=== PATIENT | female | born 1975 | race Caucasian/White ===

== ENCOUNTER 2019-02-23 19:30 | Inpatient (IN) | payer MEDICAID ==
[2019-02-23] MEDS ORDERED: LR 1,000 ML IV PRN (20:05)
[2019-02-23] MEDS ORDERED: AMMONIA AROMATIC 1 EACH AMP IH PRN (20:05)
[2019-02-23] MEDS ORDERED: IBUPROFEN 600 MG TAB PO PRN (20:05)
[2019-02-23] MEDS ORDERED: OXYTOCIN/RINGERS LACTATE 1,000 ML IV PRN (20:05)
[2019-02-23] MEDS ORDERED: OLIVE OIL 118 ML BTL MISC PRN (20:05)
[2019-02-23] MEDS ORDERED: MISOPROSTOL 200 MCG TAB PO PRN (20:05)
[2019-02-23] MEDS ORDERED: TERBUTALINE SULFATE 1 MG/ML VIAL IV PRN (20:05)
[2019-02-23] MEDS ORDERED: EPSOM SALT 454 GM TP PRN (20:05)
[2019-02-23] MEDS ORDERED: LIDOCAINE 1% 300 MG/30 ML SDV SC PRN (20:05)
--- NOTE | 2019-02-23 20:08 | PDGENHP ---
History and Physical History and Physical: CARE: Care starting at 24 weeks with Mickitroy Botello. HPI: Patient is a 43 yo G 3 P 1 @ 39 weeks who presents to L&D for pain relief in labor. She SROM'd at 6:30 AM and started denise a couple hours later. She reports strong uternine contractions throughout the day. She was attempting a home , but transferred for pain relief. Her home ceramic chemist, Mickitroy Botello reports reassuring heart tones by intermittent monitoring throughout the day. EDC: 02/25/19 which is based on LMP of 05/21/18 and consistent with Ultrasound at 34 weeks. Her is complicated by: AMA, prior c/s, late care. Review of Systems: Constitutional: Denies any fever, chills, or fatigue HEENT: denies any visual changes, difficulty swallowing, hearing loss Cardiovascular: Denies any chest pain, palpitations, leg swelling Respiratory: denies any cough, wheezing, or shortness of breath GI: Denies any nausea, vomiting, diarrhea, constipation : denies any dysuria, urgency, frequency, vaginal bleeding Musculoskeletal: denies any muscle or bone pain Skin: denies any rashes Neuro: denies any headache, seizures, lightheadedness, dizziness, or loss of consciousness Psychiatric: denies any depression, anxiety, or SI/HI thoughts HISTORY: Previous OB history: one prior EAB, prior in 2016 ended in still and c/s Social history: lives with FOB who is currently incarcerated Family history: non-contributory Past medical history: denies relevant medical history Past surgical history: prior c/s in 2016, wisdom teeth Medications: PNV Allergies (list reaction): NKDA LABS: Rh: O+ ABS: Neg Rubella: Immune HbsAg: NR HIV: pt declined, was negative in 2016 VDRL: NR 1hr: pt declined, had hemoglobin A1C= 4.9 GC: Neg Chlamydia: Neg Pap: Normal 2016 GBS: neg BMI: (prepreg) 20 PHYSICAL EXAM: Constitutional: WN, A&Ox3 HEENT: normocephalic atraumatic, supple Heart: RRR, no murmur Chest: CTA-B Skin: warm, dry, intact Abdomen: Soft, nontender, gravid SVE: 690/-1 Extremities: trace edema, negative homans sign Neuro: grossly normal Psych: normal affect assessment: FHT baseline 135, +accels, variable decels, moderate variability Contractions: toco q 2-4 min Assessment: 1) 43 yo G 3 P 1 with IUP@ 39 weeks and 3 days 2) GBS neg 3) Cat 2 FHR tracing, recurrent variables with contractions Plan: 1) Admit to L&D 2) Anticipate
--- NOTE | 2019-02-23 21:05 | PREANESOB ---
Obstetric Pre-Anesthesia Info - General Info Proposed Procedure: , possible emergency repeat C/S : 3 Para: 1 DAXA: 02/25/19 Gestational Age: 39 week(s) and 5 day(s) - Info Status: Full Term, Snell Monitors: External FHR Pattern: Reassuring - Labor Status PIH: No Magnesium Sulfate in Use: No Section History: Repeat (Possible, in the event of uterine rupture or dehiscence.) Labor Epidural: No Anesthesia Allergies/Adverse Reactions: Allergy/AdvReac Type Severity Reaction Status Date / Time No Known Allergies Allergy Unverified 07/02/12 19:11 Visit Medications: Generic Name Dose Route Start Last Admin Trade Name Freq PRN Reason Stop Dose Admin Ammonia (Aromatic Spirit) 1 each 02/23/19 20:05 Ammonia Aromatic IH 03/05/19 20:04 ONCE PRN Fainting Lactated Ringer's 1,000 mls @ 0 mls/hr 02/23/19 20:05 02/23/19 20:58 Lr IV 02/24/19 20:04 1,000 mls PRN PRN Administration SEE PROTOCOL CONDITIONS Protocol Per Protocol Oxytocin/Lactated Ringer's 1,000 mls @ 0 mls/hr 02/23/19 20:05 Pitocin 20 Units/Lr (Premix) IV PRN PRN Post bleeding As Directed Ibuprofen 600 mg 02/23/19 20:05 Motrin PO ONCE PRN post , pain Lidocaine HCl 300 mg 02/23/19 20:05 Lidocaine Hcl 1% SC 08/22/19 20:04 ONCE PRN episiotomy Magnesium Sulfate 454 gm 02/23/19 20:05 Epsom Salt TP 08/22/19 20:04 Q1H PRN perineal discomfort Misoprostol 800 - 1,000 mcg 02/23/19 20:05 Cytotec PO 08/22/19 20:04 ONCE PRN Vaginal Atony/Bleeding [place] Oil 118 ml 02/23/19 20:05 Sweet Oil MISC 08/22/19 20:04 ONCE PRN perineal massage Terbutaline Sulfate 0.25 mg 02/23/19 20:05 Brethine IV 08/22/19 20:04 ONCE PRN Tachysystole - Anesthesia History Response to Local Anesthetics: Normal Anesthesia & Operative History: Other (Specify) (Emergeny C/S under GA in 2016 for non-reassuring status. She reports slow emergence from anesthesia.) - Social History Substance Use/Abuse: Other (Specify) (Some marijuana use during .) - Vital Signs Height/Weight (Nursing): Height 152.4 cm Weight 62.142 kg - Focused Exam Neck exam: FROM Mallampati Score: Class 2 Mouth exam: normal dental/mouth exam Pulmonary: no respiratory distress, no rales or rhonchi, clear to auscultation Cardiovascular: regular rate and rhythym, no murmur, rub, or gallop - Plan Consent Signed and on Chart: No Patient/Guardian Understands and Agrees to Plan: Yes General Comments: GA or SAB as req for C/S. Anesthesiologist standing by until delivery.
[2019-02-23] MEDS ORDERED: TERBUTALINE SULFATE 1 MG/ML VIAL ONE (21:22)
[2019-02-23] MEDS ORDERED: OLIVE OIL 118 ML BTL MISC ONE (21:22)
[2019-02-23] MEDS ORDERED: AMMONIA AROMATIC 1 EACH AMP IH ONE (21:22)
[2019-02-23] MEDS ORDERED: LIDOCAINE 1% 300 MG/30 ML SDV ONE (21:22)
[2019-02-23] MEDS ORDERED: OXYTOCIN 10 UNIT/ML VIAL ONE (21:23)
[2019-02-23] MEDS ORDERED: MISOPROSTOL 200 MCG TAB ONE (21:23)
[2019-02-23 21:28] LABS: PLATELET COUNT 216 10^3/uL (150-400)
--- NOTE | 2019-02-23 22:51 | OBPROG ---
Labor Progress Note Assessment/Plan: Assessment: Plan: Subjective/Intrapartum Course: 02/23/19 22:49 pt is breathing and moaning through contractions. using nitrous intermittently for pain relief. FOB and kiln mechanic and friend at bedside for support. Objective: 02/23/19 20:50 Patient ABO/Rh O POSITIVE 02/23/19 20:50 - SVE Dilation (cm): 6 Effacement (%): 90 Station: -1 Membranes: SROM Amniotic Fluid Color: Clear - Contraction Pattern Assessment Current Contraction Pattern: Regular - FHR Assessment Snell FHR (bpm): 125 FHR Pattern Variability: Moderate FHR Category: 2 (recurrent variable decelerations) - AP Antepartum Course: 02/23/19 22:52 encouraged pt to allow another vaginal exam and place internal monitor to better trace baby heart rate and provide amnio infusion via IUPC. R/B reviewed with pt. Pt declines this procedure at this time. Oxytocin Orders Assessment - Pre-Induction/Augmentation Assessment Gestational Age: 39 week(s) and 5 day(s) ICD10 Worksheet Patient Problems: Problems Problem Status Onset History of section, low transverse Acute with 39 completed weeks gestation Acute
--- NOTE | 2019-02-23 23:23 | OBPROG ---
Labor Progress Note Assessment/Plan: Assessment: 1. TOLAC 2. Term IUP 3. SROM 4. Cat 2 FHT Plan: 1. Continue monitoring 2. Dr. Tapia aware and in house 02/23/19 23:20 Subjective/Intrapartum Course: 02/23/19 22:49 pt is breathing and moaning through contractions. using nitrous intermittently for pain relief. FOB and organisation and methods analyst and friend at bedside for support. Objective: 02/23/19 20:50 Patient ABO/Rh O POSITIVE 02/23/19 20:50 - SVE Dilation (cm): 7 Effacement (%): 90 Station: -1 Membranes: SROM Amniotic Fluid Color: Clear - Contraction Pattern Assessment Current Contraction Pattern: Regular - FHR Assessment Snell FHR (bpm): 125 FHR Pattern Variability: Moderate FHR Category: 2 - AP Antepartum Course: 02/23/19 22:52 encouraged pt to allow another vaginal exam and place internal monitor to better trace baby heart rate and provide amnio infusion via IUPC. R/B reviewed with pt. Pt declines this procedure at this time. 02/23/19 23:22 Pt again declines FSE and IUPC, epidural anesthesia offered and pt declines at this time. Encourage position change to help with rotation. Oxytocin Orders Assessment - Pre-Induction/Augmentation Assessment Gestational Age: 39 week(s) and 5 day(s) ICD10 Worksheet Patient Problems: Problems Problem Status Onset History of section, low transverse Acute with 39 completed weeks gestation Acute
[2019-02-24] MEDS ORDERED: NALOXONE HCL 0.4 MG/ML INJ IVP PRN ×3 (00:35→08:59)
[2019-02-24] MEDS ORDERED: ONDANSETRON 4 MG/2 ML VIAL IVP PRN ×2 (00:35→08:58)
[2019-02-24] MEDS ORDERED: PHENYLEPHRINE HCL 100 MCG/ML SYR IVP PRN (00:35)
--- NOTE | 2019-02-24 00:35 | PREANESOB ---
Obstetric Pre-Anesthesia Info - General Info Proposed Procedure: JOSE RAMON : 3 Para: 1 DAXA: 02/25/19 Gestational Age: 39 week(s) and 5 day(s) - Info Status: Full Term FHR Pattern: Reassuring - Labor Status Cervical Dilation per last OB SVE: 7 Station per last OB SVE: -1 Amniotic Fluid Color: Clear Indications for Labor Analgesia: Pain Control Labor Epidural: Yes Anesthesia Allergies/Adverse Reactions: Allergy/AdvReac Type Severity Reaction Status Date / Time No Known Allergies Allergy Unverified 07/02/12 19:11 Visit Medications: Generic Name Dose Route Start Last Admin Trade Name Freq PRN Reason Stop Dose Admin Ammonia (Aromatic Spirit) 1 each 02/23/19 20:05 Ammonia Aromatic IH 03/05/19 20:04 ONCE PRN Fainting Lactated Ringer's 1,000 mls @ 0 mls/hr 02/23/19 20:05 02/23/19 20:58 Lr IV 02/24/19 20:04 1,000 mls PRN PRN Administration SEE PROTOCOL CONDITIONS Protocol Per Protocol Oxytocin/Lactated Ringer's 1,000 mls @ 0 mls/hr 02/23/19 20:05 Pitocin 20 Units/Lr (Premix) IV PRN PRN Post bleeding As Directed Ibuprofen 600 mg 02/23/19 20:05 Motrin PO ONCE PRN post , pain Lidocaine HCl 300 mg 02/23/19 20:05 Lidocaine Hcl 1% SC 08/22/19 20:04 ONCE PRN episiotomy Magnesium Sulfate 454 gm 02/23/19 20:05 Epsom Salt TP 08/22/19 20:04 Q1H PRN perineal discomfort Misoprostol 800 - 1,000 mcg 02/23/19 20:05 Cytotec PO 08/22/19 20:04 ONCE PRN Vaginal Atony/Bleeding [place] Oil 118 ml 02/23/19 20:05 Sweet Oil MISC 08/22/19 20:04 ONCE PRN perineal massage Terbutaline Sulfate 0.25 mg 02/23/19 20:05 Brethine IV 08/22/19 20:04 ONCE PRN Tachysystole Discontinued Medications Generic Name Dose Route Start Last Admin Trade Name Freq PRN Reason Stop Dose Admin Ammonia (Aromatic Spirit) Confirm 02/23/19 21:22 Ammonia Aromatic Administered 02/23/19 21:23 Dose 1 each IH .STK-MED ONE Lidocaine HCl Confirm 02/23/19 21:22 Lidocaine Hcl 1% Administered 02/23/19 21:23 Dose 300 mg .ROUTE .STK-MED ONE Misoprostol Confirm 02/23/19 21:23 Cytotec Administered 02/23/19 21:24 Dose 1,000 mcg .ROUTE .STK-MED ONE [place] Oil Confirm 02/23/19 21:22 Sweet Oil Administered 02/23/19 21:23 Dose 118 ml MISC .STK-MED ONE Oxytocin Confirm 02/23/19 21:23 Pitocin Administered 02/23/19 21:24 Dose 40 unit .ROUTE .STK-MED ONE Terbutaline Sulfate Confirm 02/23/19 21:22 Brethine Administered 02/23/19 21:23 Dose 1 mg .ROUTE .STK-MED ONE - Anesthesia History Anesthesia & Operative History: No Prior Problems - Vital Signs Height/Weight (Nursing): Height 152.4 cm Weight 62.142 kg - Focused Exam Neck exam: FROM Mallampati Score: Class 2 Mouth exam: normal dental/mouth exam Pulmonary: no respiratory distress, no rales or rhonchi Cardiovascular: regular rate and rhythym, no murmur, rub, or gallop Labs: 02/23/19 20:50 Patient ABO/Rh O POSITIVE 02/23/19 20:50 - Plan Consent Signed and on Chart: Yes Patient/Guardian Understands and Agrees to Plan: Yes Urgent/Emergent Case: Donnie novoa completed preop but documented later for safe timely pt care (ASA II)
[2019-02-24] MEDS ORDERED: fentaNYL 100 MCG/2 ML INJ ONE (00:38)
[2019-02-24] MEDS ORDERED: fentaNYL 2MCG/ML/BUP 0.1% RTU 100 ML BAG EP ONE (00:39)
[2019-02-24] MEDS ORDERED: PHENYLEPHRINE HCL 100 MCG/ML SYR ONE (00:39)
[2019-02-24] MEDS ORDERED: BUPIVACAINE 0.25% 10 ML SDV ONE (00:40)
[2019-02-24] MEDS ORDERED: LR 500 ML IV SCH (01:00)
[2019-02-24] MEDS ORDERED: fentaNYL 2MCG/ML/BUP 0.1% RTU 100 ML EP SCH (01:00)
--- NOTE | 2019-02-24 02:29 | OBPROG ---
Labor Progress Note Assessment/Plan: Assessment: 1. TOLAC 2. Term IUP 3. SROM 4. Cat 2 FHT Plan: 1. Continue monitoring 2. Dr. Tapia aware and in house 02/23/19 23:20 Subjective/Intrapartum Course: 02/23/19 22:49 pt is breathing and moaning through contractions. using nitrous intermittently for pain relief. FOB and button station worker and friend at bedside for support. Objective: 02/23/19 20:50 Patient ABO/Rh O POSITIVE 02/23/19 20:50 - SVE Membranes: SROM Amniotic Fluid Color: Clear - Contraction Pattern Assessment Current Contraction Pattern: Regular - AP Antepartum Course: 02/23/19 22:52 encouraged pt to allow another vaginal exam and place internal monitor to better trace baby heart rate and provide amnio infusion via IUPC. R/B reviewed with pt. Pt declines this procedure at this time. 02/23/19 23:22 Pt again declines FSE and IUPC, epidural anesthesia offered and pt declines at this time. Encourage position change to help with rotation. 02/24/19 02:27 called to room for decel of approximately 6 min. FHR recovered and good variability at this time. Oxytocin Orders Assessment - Pre-Induction/Augmentation Assessment Gestational Age: 39 week(s) and 5 day(s) ICD10 Worksheet Patient Problems: Problems Problem Status Onset History of section, low transverse Acute with 39 completed weeks gestation Acute
[2019-02-24] MEDS ORDERED: LR 500 ML IV PRN (05:31)
--- NOTE | 2019-02-24 05:40 | OBPROG ---
Labor Progress Note Assessment/Plan: Assessment: 1. TOLAC 2. Term IUP 3. SROM 4. Cat 2 FHT Plan: 1. Continue monitoring 2. Dr. Tapia aware and in house 02/23/19 23:20 Subjective/Intrapartum Course: 02/23/19 22:49 pt is breathing and moaning through contractions. using nitrous intermittently for pain relief. FOB and mixed crop and livestock farm worker and friend at bedside for support. 02/24/19 05:33 pt is comfortable with epidural. Objective: 02/23/19 20:50 Patient ABO/Rh O POSITIVE 02/23/19 20:50 VSS, cat 2 FHT - SVE Dilation (cm): 7 (7-8 swollen) Effacement (%): 80 Station: -1 Membranes: SROM Amniotic Fluid Color: Meconium Stained - Contraction Pattern Assessment Current Contraction Pattern: Irregular (5-8 minutes) - FHR Assessment Snell FHR (bpm): 135 FHR Pattern Variability: Moderate FHR Category: 2 (pt continues having variable decelerations with nearly every contraction) - AP Antepartum Course: 02/23/19 22:52 encouraged pt to allow another vaginal exam and place internal monitor to better trace baby heart rate and provide amnio infusion via IUPC. R/B reviewed with pt. Pt declines this procedure at this time. 02/23/19 23:22 Pt again declines FSE and IUPC, epidural anesthesia offered and pt declines at this time. Encourage position change to help with rotation. 02/24/19 02:27 called to room for decel of approximately 6 min. FHR recovered and good variability returned at this time. 02/24/19 05:34 R/B of pitocin augmentation vs continued expectant management discussed with pt. R/B of IUPC and amnio-infusion discussed with pt again. R/B of repeat c/s reviewed with pt. Discussed non-emergent vs emergent c/s and differences between now and her last operative . Pt is discussing with partner, friends at this time. 02/24/19 06:09 Pt is considering as best option for at this time, declines IUPC and pitocin augmentation. Oxytocin Orders Assessment - Pre-Induction/Augmentation Assessment Gestational Age: 39 week(s) and 5 day(s) ICD10 Worksheet Patient Problems: Problems Problem Status Onset History of section, low transverse Acute with 39 completed weeks gestation Acute Prolonged labor with second Acute - ICD10 Problem Qualifiers (1) Prolonged labor with second
[2019-02-24] MEDS ORDERED: OXYTOCIN/RINGERS LACTATE 500 ML IV SCH (06:00)
--- NOTE | 2019-02-24 07:01 | OBPROG ---
Labor Progress Note Assessment/Plan: Assessment: 43 yo today at 39w6d - presented Monday afternoon as transfer from home with her optical effects layout person -- TOLAC at home. See Terri's notes for full presentation details - but briefly, SROM early Monday morning, transferring for pain control. She has a h/o prior D&C for missed AB in the past, and with her last term she actually was laboring at center and ended up transferring to [facility] due to distress. Unclear story - but it seems that heart tones were down or non- existent when she arrived at [facility] and they elected to do an emergent section and tried to resuscitate the baby, but unsuccessful. With this she's had scant care. DAXA by LMP, no early dating US's. Did have normal anatomy scan at 34 weeks which was consistent w dating, posterior placenta. She had normal labs except for HIV. She declined her Glucola/GDM screening. -- I had a long talk with her and her partner/hose mender. I recommended RCS due to arrest of dilation in the context of TOLAC. I counseled her that it is ultimately undesirable to be denise and not making any progress in her situation as that will place additional stress on her hysterotomy scar. She is comfortable with that plan. Consents signed, RBA discussed. - Routine preop orders. - Weight-based abx, Ancef and Azithro. JM Subjective/Intrapartum Course: Terri asked me to consult with Diann this AM re possible RCS. Reviewed her labor progress thus far - unfortunately now at 7-8cm most recently with swollen anterior lip of cervix. She is declining IUPC and Pitocin at this point. Comfortable with epidural. Objective: 02/23/19 20:50 Patient ABO/Rh O POSITIVE 02/23/19 20:50 - SVE Dilation (cm): 7 Membranes: SROM Amniotic Fluid Color: Meconium Stained - Contraction Pattern Assessment Current Contraction Pattern: Regular (q7-10mins), Irregular (5-8 minutes) - AP Antepartum Course: 02/23/19 22:52 encouraged pt to allow another vaginal exam and place internal monitor to better trace baby heart rate and provide amnio infusion via IUPC. R/B reviewed with pt. Pt declines this procedure at this time. 02/23/19 23:22 Pt again declines FSE and IUPC, epidural anesthesia offered and pt declines at this time. Encourage position change to help with rotation. 02/24/19 02:27 called to room for decel of approximately 6 min. FHR recovered and good variability returned at this time. 02/24/19 05:34 R/B of pitocin augmentation vs continued expectant management discussed with pt. R/B of IUPC and amnio-infusion discussed with pt again. R/B of repeat c/s reviewed with pt. Discussed non-emergent vs emergent c/s and differences between now and her last operative . Pt is discussing with partner, friends at this time. 02/24/19 06:09 Pt is considering as best option for at this time, declines IUPC and pitocin augmentation. Oxytocin Orders Assessment - Pre-Induction/Augmentation Assessment Gestational Age: 39 week(s) and 5 day(s) ICD10 Worksheet Patient Problems: Problems Problem Status Onset History of section, low transverse Acute with 39 completed weeks gestation Acute Prolonged labor with second Acute
[2019-02-24] MEDS ORDERED: AZITHROMYCIN IV 500 MG in NS 250 ML IV ONE (07:03)
[2019-02-24] MEDS ORDERED: LR 500 ML IV ONE (07:03)
[2019-02-24] MEDS ORDERED: ceFAZolin 2 GM/DEXTROSE 100 ML IV ONE (07:03)
[2019-02-24] MEDS ORDERED: LR 1,000 ML IV SCH (07:30)
--- NOTE | 2019-02-24 08:01 | PDANEPAE ---
ANE History of Present Illness 43 year old with term for C/S ANE Past Medical History - Pulmonary History Hx Sleep Apnea: No Sleep Apnea Screening Result - Last Documented: Negative - Endocrine History Hx Diabetes: No ANE Review of Systems Review of systems is: negative Review of Systems: ANE Patient History - Allergies Allergies/Adverse Reactions: No Known Allergies Allergy (Unverified 07/02/12 19:11) - NPO status NPO Since - Liquids (Date): 02/24/19 NPO Since - Liquids (Time): 00:00 NPO Since - Solids (Date): 02/23/19 NPO Since - Solids (Time): 12:00 - Anes Hx Anes Hx: no prior problems - Smoking Hx Smoking Status: Former smoker ANE Labs/Vital Signs - Labs Result Diagrams: 02/23/19 20:50 - Vital Signs Blood Pressure: 113/66 Heart Rate: 90 Respiratory Rate: 16 O2 Sat (%): 100 Height: 152.4 cm Weight: 62.142 kg ANE Physical Exam - Airway Neck exam: FROM Mallampati Score: Class 1 Mouth exam: normal dental/mouth exam - Pulmonary Pulmonary: no respiratory distress, clear to auscultation - Cardiovascular Cardiovascular: regular rate and rhythym - ASA Status ASA Status: II ANE Anesthesia Plan Anesthesia Plan: epidural
[2019-02-24] MEDS ORDERED: morphINE PF 10 MG/10 ML INJ ONE (08:56)
[2019-02-24] MEDS ORDERED: fentaNYL 100 MCG/2 ML INJ IVP PRN (08:58)
[2019-02-24] MEDS ORDERED: MEPERIDINE 25 MG/0.5 ML AMP IVP PRN (08:58)
--- NOTE | 2019-02-24 09:29 | SUROPNOTE ---
ANGE Operative Report - Surgery Date of Operation: 02/24/19 Surgeon: [facility] Customer Service: Terri Carter CNM Anesthesiologist: Pavan Henning Pre-op Diagnosis: Arrest of dilation, failed TOLAC Post-op Diagnosis: Same Procedure: RLTCS Findings: Normal uterus tubes and ovaries, minimal scar tissue. Vigorous baby boy Inf/Abcess present in the surg proc area at time of surgery?: No EBL: 500-1000 (700cc) Complications: None Specimen(s): Cord blood gasses sent Technique: The patient was taken to the OR where epidural was dosed and anesthesia found to be adequate. The patient was then positioned supine with a leftward tilt and a time-out was performed. She was given weight-based antibiotics prior to skin incision - Azithromycin as well as Ancef. The abdomen was prepped and draped in normal sterile fashion. A Pfannenstiel skin incision was made with the scalpel and carried down to the fascia. Her prior transverse scar was excised prior to that dissection. The fascia was incised in the midline and the incision extended bilaterally sharply with scissors. The fascia was dissected off of the underlying rectus muscles superiorly and inferiorly also sharply using scissors. The rectus were in the midline and the peritoneum identified and entered bluntly without issue. Minimal adhesions encountered as described in findings. The peritoneal incision was extended and the bladder blade was then placed. The vesicouterine junction was identified and a bladder flap created sharply and developed bluntly. Bakari O retractor placed. There was NO evidence of uterine rupture at all. A transverse incision was made with the scalpel in the lower uterine segment and extended with cephalad and caudad traction on the incision edges. The head was encountered and easily elevated out of the pelvis and delivered atraumatically, followed by the shoulders and body. The nose and mouth were bulb suctioned. We did wait for 60 seconds before clamping and cutting the cord and then the was handed to pediatric staff. Cord blood gases were sent but the placenta was not sent to pathology. The uterus was then carefully wiped of all debris. The uterus was closed in two layers - the first layer was running with 180 0-vloc and the second a vertical imbricating layer using 0-vicryl. The gutters were cleared of all clots. The uterine incision was re-inspected and found to be hemostatic after placement of two additional figure of eight sutures of 2-0 vicryl. The fascia was elevated and the rectus muscles and subcutaneous tissues were found to be hemostatic. The fascia was closed with a running 0-Vicryl - single suture. The subcutaneous tissues were irrigated and hemostasis obtained. The skin was closed with 4-0 vloc undyed and then covered with Medipore dressing. The patient tolerated the procedure and was taken to recovery in stable condition. Lap, needle, sponge, and instrument count were announced as correct times two. I was present and scrubbed for the entire case.
--- NOTE | 2019-02-24 09:31 | OBDEL ---
Info Type: Repeat Presentation at Delivery: Vertex L&D Analgesia/Anesthesia Type: Epidural GBS+: No Intrapartum Medications: Generic Name Dose Route Start Last Admin Trade Name Freq PRN Reason Stop Dose Admin Lactated Ringer's 1,000 mls @ 0 mls/hr 02/23/19 20:05 02/23/19 20:58 Lr IV 02/24/19 20:04 1,000 mls PRN PRN Administration SEE PROTOCOL CONDITIONS Protocol Per Protocol Discontinued Medications Generic Name Dose Route Start Last Admin Trade Name Freq PRN Reason Stop Dose Admin Azithromycin 500 mg/ Sodium 255 mls @ 255 mls/hr 02/24/19 07:03 02/24/19 07: 22 Chloride IV 02/24/19 08:02 255 mls ONCE ONE Administration Protocol Cefazolin Sodium/Dextrose 100 mls @ 200 mls/hr 02/24/19 07:03 02/24/19 07:22 Ancef IV 02/24/19 07:32 100 mls ONCALL ONE Administration Protocol - Hospital Course Intrapartum: Terri asked me to consult with Diann this AM re possible RCS. Reviewed her labor progress thus far - unfortunately now at 7-8cm most recently with swollen anterior lip of cervix. She is declining IUPC and Pitocin at this point. Comfortable with epidural. Indications for Delivery: SROM (H/o prior , failed TOLAC) Vaginal Delivery - Labor and Delivery Onset of Contractions Date: 02/23/19 Onset of Contractions Time: 08:00 Amniotic Fluid Color: Meconium Stained Cord Gases: Cord Gases Cord Blood PCO2 REJ 02/24/19 08:37 Cord Base Excess REJ 02/24/19 08:37 Cord ABG pH REJ 02/24/19 08:37 Cord VBG pH REJ 02/24/19 08:37 Operative Report - Delivery Pre-op Diagnoses: Failed TOLAC, SROM, h/o prior , meconium-stained fluid , arrest of dilation, limited care Post-op Diagnoses: Same History of Prior Section: Yes Number of Prior Sections: 1 Nulliparous Prior to Delivery: No Indications for Prior Section: Non-reas. Status Indications for Current Section: Arrest of Dilation (8cm, declines IUPC and Pitocin) Procedure: Unscheduled Surgeon: Norberto Tapia Safety Net Maker: Terri Carter Anesthesiologist: Cruz Baron Warm Complications: None Findings: Normal uterus, tubes and ovaries. Vigorous baby boy, grossly normal placenta and cord. No evidence of uterine rupture. EBL: 700 Cord Gases: Cord Gases Cord Blood PCO2 REJ 02/24/19 08:37 Cord Base Excess REJ 02/24/19 08:37 Cord ABG pH REJ 02/24/19 08:37 Cord VBG pH REJ 02/24/19 08:37 [place] Data DAXA: 02/25/19 Gestational Age: 39 week(s) and 6 day(s) [facility] Delivery Date: 02/24/19 Sex of : Male ICD10 Worksheet Patient Problems: Problems Problem Status Onset Arrest of dilation, delivered, current hospitalization Acute Failed trial of labor following previous , delivered Acute History of section, low transverse Acute Limited care Acute with 39 completed weeks gestation Acute Prolonged labor with second Acute - ICD10 Problem Qualifiers (1) Failed trial of labor following previous , delivered (2) Arrest of dilation, delivered, current hospitalization (3) Limited care Qualifiers: Trimester: third trimester Qualified Code(s): O09.33 - Supervision of with insufficient care, third trimester
[2019-02-24] MEDS ORDERED: MAGNESIUM HYDROXIDE 30 ML UDCUP PO PRN (09:35)
[2019-02-24] MEDS ORDERED: POLYETHYLENE GLYCOL 3350 17 GM PKT PO PRN (09:35)
[2019-02-24] MEDS ORDERED: oxyCODONE IR 5 MG TAB PO PRN (09:35)
[2019-02-24] MEDS ORDERED: SIMETHICONE 80 MG TAB CHEW PO PRN (09:35)
[2019-02-24] MEDS ORDERED: PROMETHAZINE HCL 25 MG/ML INJ IVP PRN (09:35)
[2019-02-24] MEDS ORDERED: BISACODYL 10 MG SUPP PR PRN (09:35)
[2019-02-24] MEDS ORDERED: LACTULOSE 20 GM/30 ML UDCUP PO PRN (09:35)
--- NOTE | 2019-02-24 09:49 | POSTANESTH ---
Post Anesthetic Evaluation Cardiovascular Status: Normal, Stable Respiratory Status: Normal, Stable Level of Consciousness/Mental Status: Can Participate in Eval Pain Control: Adequate, Prn Tx Ordered Nausea/Vomiting Control: Adequate, Prn Tx Ordered Complications Possibly Related to Anesthesia: None Noted
[2019-02-24] MEDS: IBUPROFEN 600 MG TAB PO SCH ×2 (10:32→22:04)
[2019-02-24] MEDS: ACETAMINOPHEN 325 MG TAB PO SCH ×2 (10:38→16:47)
[2019-02-24] MEDS: KETOROLAC 30 MG/1 ML SDV IVP SCH ×3 (10:44→22:04)
[2019-02-24] MEDS: SENNOSIDES/DOCUSATE SODIUM TAB PO SCH (22:04)
[2019-02-25] MEDS: IBUPROFEN 600 MG TAB PO SCH ×4 (05:43→22:03)
[2019-02-25] MEDS: ACETAMINOPHEN 325 MG TAB PO SCH ×4 (05:43→22:03)
[2019-02-25] MEDS: KETOROLAC 30 MG/1 ML SDV IVP SCH (05:44)
--- NOTE | 2019-02-25 10:45 | OBPP ---
Progress Note Assessment/Plan: Assessment: s/p RCS, failed TOLAC-SROM with meconium stained fluid, arrest of descent, limited care POD #1 Plan: Pt is very upset and wants to be left alone; she is feeling overwhelmed with "random people coming in every 20 minutes" and needs time to herself I told pt that I would have my partner, Dr. Tapia, come by and round on her later this afternoon and she agreed 02/25/19 10:49 Objective: 02/23/19 20:50 Patient ABO/Rh O POSITIVE 02/23/19 20:50 Temp Pulse Resp BP Pulse Ox 36.3 C 95 16 120/86 H 95 02/25/19 10:00 02/25/19 10:00 02/25/19 10:00 02/25/19 10:00 02/25/19 10:00
--- NOTE | 2019-02-25 14:09 | OBPP ---
Progress Note Assessment/Plan: Assessment: 1. TOLAC 2. Term IUP 3. SROM 4. Cat 2 FHT Plan: 1. Continue monitoring 2. Dr. Tapia aware and in house 02/23/19 23:20 Subjective/ Course: 02/25/19 09:45 Pt reports that her pain is well controlled and she denies need for pain medication at this time. Pt reports pain "like pulled muscle" in R shoulder. She reports that she is breast feeding well. Denies problems voiding or passing flatus. Objective: 02/23/19 20:50 Patient ABO/Rh O POSITIVE 02/23/19 20:50 Temp Pulse Resp BP Pulse Ox 36.3 C 95 16 120/86 H 95 02/25/19 10:00 02/25/19 10:00 02/25/19 10:00 02/25/19 10:00 02/25/19 10:00 VSS Uterine Position/Fundal Height: At Umbilicus Uterine Tone: Firm Physical Exam - Physical Exam Abdomen: dressing (clean and dry) Extremities: No calf tenderness, No Noemí's sign
[2019-02-25] MEDS: SENNOSIDES/DOCUSATE SODIUM TAB PO SCH ×2 (15:17→22:03)
--- NOTE | 2019-02-25 15:49 | ASMTCMCOM ---
CM Note CM Note Notes: Pt's RN contact CM as FOC was at the but then had to return to retirement, and RN was concerned that pt may need extra support. When CM attempted to see pt, she declined, explaining to RN that she has a home and income, insurance and plenty of support. She is overwhelmed with the number of people coming into the room and needs to rest. No further CM needs noted at this time. Date Signed: 02/25/2019 03:49 PM Electronically Signed By:Perla Jin. RN
[2019-02-26] MEDS: ACETAMINOPHEN 325 MG TAB PO SCH ×2 (05:53→10:46)
[2019-02-26] MEDS: IBUPROFEN 600 MG TAB PO SCH ×2 (05:53→10:47)
--- NOTE | 2019-02-26 09:02 | OBGCSDC ---
General Delivery Information - General Info : 3 Para: 2 Abortions: 0 Type: Repeat L&D Analgesia/Anesthesia Type: Epidural, Nitrous Admission Date: 02/23/19 Labs: Patient ABO/Rh O POSITIVE 02/23/19 20:50 Hct 40.7 % (38.0-47.0) 02/23/19 20:50 Temp Pulse Resp BP Pulse Ox 02/26/19 03:50 36.4 C 86 20 129/88 H 96 02/25/19 20:00 36.3 C 92 20 144/95 H 96 02/25/19 16:20 37.1 C 82 16 157/87 H 97 02/25/19 10:00 36.3 C 95 16 120/86 H 95 - Hospital Course Antepartum: 02/23/19 22:52 encouraged pt to allow another vaginal exam and place internal monitor to better trace baby heart rate and provide amnio infusion via IUPC. R/B reviewed with pt. Pt declines this procedure at this time. 02/23/19 23:22 Pt again declines FSE and IUPC, epidural anesthesia offered and pt declines at this time. Encourage position change to help with rotation. 02/24/19 02:27 called to room for decel of approximately 6 min. FHR recovered and good variability returned at this time. 02/24/19 05:34 R/B of pitocin augmentation vs continued expectant management discussed with pt. R/B of IUPC and amnio-infusion discussed with pt again. R/B of repeat c/s reviewed with pt. Discussed non-emergent vs emergent c/s and differences between now and her last operative . Pt is discussing with partner, friends at this time. 02/24/19 06:09 Pt is considering as best option for at this time, declines IUPC and pitocin augmentation. Intrapartum: Terri asked me to consult with Diann this AM re possible RCS. Reviewed her labor progress thus far - unfortunately now at 7-8cm most recently with swollen anterior lip of cervix. She is declining IUPC and Pitocin at this point. Comfortable with epidural. : 02/25/19 09:45 Pt reports that her pain is well controlled and she denies need for pain medication at this time. Pt reports pain "like pulled muscle" in R shoulder. She reports that she is breast feeding well. Denies problems voiding or passing flatus. 02/26/19 09:01 S) Pt doing well, reports min to moderate pain. She is not taking any medications. She reports min bleeding. she is ambulating and voiding without difficulty. She is . She desires discharge home today. She has not passed any gas or had BM. O) VSS, afebrile constitutional: WNF, A&Ox3 HEENT: normocephalic, atraumatic, supple Heart: RRR, No murmur Chest: CTA-B Breasts: soft, nontender, not engorged, nipples intact Abdomen: Soft, nontender, BSx4 Incision: C/D/I, well approximated, no erythema, no drainage Uterus: Firm at U-1 Lochia: Minimal rubra Extremities: Trace edema, and negative Noemí's sign Neuro: Grossly normal A) 43-year-old S/P repeat c/s POD#2 P) Discharge home today after passing gas or BM Continue Pelvic rest x 6wks Discussed danger signs (infection, preeclampsia, depression, heavy bleeding, etc ) RTO in 1-2/4/6 weeks 02/26/19 09:02 Vaginal - Diagnosis Amniotic Fluid Color: Meconium Stained - Delivery Providers Surgeon: Norberto Tapia Alumni Secretary: Terri Carter Anesthesiologist: Cruz Baron Warm - Delivery Number of Prior Sections: 1 Indications for Current Section: Arrest of Dilation (8cm, declines IUPC and Pitocin) Surgical Procedures: Unscheduled Intra-op Complications: None EBL: 700 Data DAXA: 02/25/19 Gestational Age: 40 week(s) and 1 day(s) [facility] Delivery Date: 02/24/19 Delivery Time: 08:37 Sex of : Male Weight (gm): 2842 g Score (1 Min): 8 Score (5 Min): 9 Discharge Information - Discharge Information Condition: Good
[2019-02-26] MEDS: SENNOSIDES/DOCUSATE SODIUM TAB PO SCH (10:47)
[2019-02-26 10:49] VITALS: BP 125/83
== END 2019-02-26 12:50 | disposition home or self-care (01) | DRG 540 ==
LOC: FLD 19:30 → FOB 02-24 12:20
PROVIDERS: ADMIT Advanced Practice Midwife; ATTEND Advanced Practice Midwife
PROC: 10D00Z1 Extraction of Products of Conception, Low, Open Approach (ICD-10-PCS; principal; 2019-02-24)
DX: O62.1 Secondary uterine inertia (principal); O34.219 Maternal care for unspecified type scar from previous cesarean delivery; Z37.0 Single live birth; Z3A.39 39 weeks gestation of pregnancy; O66.41 Failed attempted vaginal birth after previous cesarean delivery
CPT/HCPCS: J0456; J0690; J1885; J2274; J2370; J2590; J3010; J3105